=== PATIENT | male | born 1990 | race Caucasian/White ===

== ENCOUNTER → 2016-03-18 | Outpatient (CLI) | payer BC ==
[~2016-03-18] MED LIST: CALC ACETATE; CLEOCIN HCL300 MG PO; CLOTRIMAZOLE10 MG MM; D3-55000 IU PO; FOLIC ACID 11 MG/TA1 PO; LEVAQUIN 2250 MG/TAB PO; LIQUID MAGNESI400 MG PO; MYFORTIC360 MG PO; NEPHROCAPS QT; PEPCID 20MG TAB20 MG PO; PERCOCET 325 MG1 TA2 PO; PHOS LO PO; PREDNISONE 5MG5 MG PO; PRILOSEC 20MG20 MG PO; PROGRAF 1MG1 MG PO; RENVELA800 MG PO; TYLENOL 500MG500 MG PO; VITAMIN C; ZESTRIL 5MG5 MG PO; ZOVIRAX400 MG PO
[2016-03-18 10:18] LABS: CALCIUM 9.2 mg/dL (8.4-10.2); CREATININE, serum 2.16 mg/dL (0.66-1.25); PHOSPHOROUS 3.3 mg/dL (2.5-4.5)
[2016-03-18 10:29] LABS: POTASSIUM 2.8 mmol/L (3.4-5.0)
[2016-03-18 13:48] LABS: PH 5 (5-8); SQUAMOUS EPITHELIAL None Seen /hpf; URINE APPEARANCE Clear; URINE BACTERIA Rare /hpf; URINE BILIRUBIN Negative (NEGATIVE); URINE BLOOD 1+ (NEGATIVE); URINE COLOR Yellow; URINE GLUCOSE Negative (NEGATIVE); URINE KETONE Negative (NEGATIVE); URINE RBC 0-2 /hpf; URINE UROBILINOGEN Negative (NEGATIVE)
== END ==
LOC: COL.LAB 09:10
PROVIDERS: Internal Medicine Nephrology
DX: Z79.899 Other long term (current) drug therapy (principal); Z94.0 Kidney transplant status; N18.3 Chronic kidney disease, stage 3 (moderate); E83.42 Hypomagnesemia

== ENCOUNTER → 2016-03-18 | Outpatient (CLI) | payer BC | LOC: COL.RAD 13:30 | DX: N18.3 Chronic kidney disease, stage 3 (moderate) (principal); Z94.0 Kidney transplant status ==

== ENCOUNTER → 2016-03-31 | Outpatient (CLI) | payer BC ==
[2016-03-31 08:08] LABS: MEAN CELL VOLUME 93 fl (80.0-100.0); MEAN CORPUSCULAR HGB CONC 31 g/dl (33.0-37.0); MEAN PLATELET VOLUME 11.5 fl (7.4-10.4); PLATELET COUNT 256 K/mm3 (130-400); RED BLOOD COUNT 3.01 M/mm3 (4.20-5.60); REDCELL DISTRIBUTION WIDTH-CV 14.9 % (11.5-14.5); WHITE BLOOD COUNT 5.8 K/mm3 (4.8-10.8)
[2016-03-31 08:09] LABS: HEMATOCRIT 27.9 % (42.0-52.0); HEMOGLOBIN 8.7 g/dl (13.5-18.0); MEAN CORPUSCULAR HEMOGLOBIN 29 pg (27.0-31.0)
[2016-03-31 08:13] LABS: ADD PATHOLOGY DIFF REVIEW NO
[2016-03-31 08:24] LABS: ALBUMIN 3.4 gm/dL (3.5-5.0); CALCIUM 9.6 mg/dL (8.4-10.2); CREATININE, serum 1.87 mg/dL (0.66-1.25); MAGNESIUM 1.4 mg/dL (1.6-2.3)
[2016-03-31 09:49] LABS: POTASSIUM 5.9 mmol/L (3.4-5.0)
[2016-03-31 16:00] LABS: BAND 2 % (0-10); EOSINOPHIL 4 % (0-4); NEUTROPHILS 62 % (42.0-75.2); TOTAL CELLS COUNTED 100
[2016-03-31 16:02] LABS: HYPOCHROMIA 2+
[2016-03-31 16:03] LABS: ANISOCYTOSIS 1+; POIKILOCYTOSIS 1+; SCHISTOCYTES 1+
== END ==
LOC: COL.LAB 07:48
DX: R19.7 Diarrhea, unspecified (principal)

== ENCOUNTER → 2016-04-06 | Outpatient (CLI) | payer BC ==
[2016-04-06 09:22] LABS: PH 5 (5-8); SQUAMOUS EPITHELIAL None Seen /hpf; URINE APPEARANCE Clear; URINE BACTERIA None Seen /hpf; URINE BILIRUBIN Negative (NEGATIVE); URINE BLOOD Negative (NEGATIVE); URINE COLOR Yellow; URINE GLUCOSE Negative (NEGATIVE); URINE KETONE Negative (NEGATIVE); URINE RBC 0-2 /hpf; URINE UROBILINOGEN Negative (NEGATIVE)
[2016-04-06 09:25] LABS: ALBUMIN 3.7 gm/dL (3.5-5.0); CALCIUM 9.7 mg/dL (8.4-10.2); CREATININE, serum 1.83 mg/dL (0.66-1.25); PHOSPHOROUS 4.3 mg/dL (2.5-4.5)
== END ==
LOC: COL.LAB 08:18
PROVIDERS: Internal Medicine Nephrology
DX: N18.3 Chronic kidney disease, stage 3 (moderate) (principal); Z94.0 Kidney transplant status

== ENCOUNTER → 2016-05-04 | Outpatient (CLI) | payer BC ==
[2016-05-04 09:44] LABS: ALBUMIN 3.8 gm/dL (3.5-5.0); CALCIUM 9.6 mg/dL (8.4-10.2); CREATININE, serum 1.38 mg/dL (0.66-1.25); POTASSIUM 4.2 mmol/L (3.4-5.0)
[2016-05-04 10:13] LABS: PH 5 (5-8); SQUAMOUS EPITHELIAL None Seen /hpf; URINE APPEARANCE Clear; URINE BACTERIA None Seen /hpf; URINE BILIRUBIN Negative (NEGATIVE); URINE BLOOD Negative (NEGATIVE); URINE COLOR Yellow; URINE GLUCOSE Negative (NEGATIVE); URINE KETONE Negative (NEGATIVE); URINE RBC 0-2 /hpf; URINE UROBILINOGEN Negative (NEGATIVE); URINE WBC 0-2 /hpf
== END ==
LOC: COL.LAB 09:03
PROVIDERS: Internal Medicine Nephrology
DX: Z94.0 Kidney transplant status (principal); N18.3 Chronic kidney disease, stage 3 (moderate); E83.42 Hypomagnesemia; Z79.899 Other long term (current) drug therapy

== ENCOUNTER 2016-10-15 13:56 | Inpatient (IN) | payer OTHER ==
[~2016-10-15] VITALS: Ht 165.1 cm; Wt 65.9 kg
[~2016-10-15 13:56] MED LIST changes: -AMBIEN 5MG TABLE5 MG PO; -APRESOLINE 25MG25 MG PO; -COLACE 100100 MG/CAP PO; -EPOGEN10000 U/ML; -NORCO 325 MG-51 TAB PO; -NORVASC 10MG10 MG PO; -PHOSLO667 MG PO; -TRIAMCINOLONE A15 G3 TP
[2016-10-15 14:54] VITALS: BP 139/83; PULSE 88; TEMP 97.3
[2016-10-15 16:01] LABS: INR 1.3 (0.8-3.0); PROTHROMBIN TIME 14.6 SECONDS (9.7-12.8)
[2016-10-15 16:18] VITALS: BP 142/79; PULSE 99
[2016-10-15 16:18] LABS: PH 7 (5-8); SQUAMOUS EPITHELIAL None Seen /hpf; URINE APPEARANCE Hazy; URINE BACTERIA Rare /hpf; URINE BILIRUBIN Negative (NEGATIVE); URINE BLOOD 1+ (NEGATIVE); URINE COLOR Straw; URINE GLUCOSE 1+ (NEGATIVE); URINE KETONE Negative (NEGATIVE); URINE RBC 20-50 /hpf; URINE UROBILINOGEN Negative (NEGATIVE); URINE WBC >50 /hpf
[2016-10-15 16:30] LABS: URINE PROTEIN:CREAT RATIO 6.07 (0.00-0.14)
[2016-10-15 20:13] VITALS: BP 159/84; PULSE 94; TEMP 98.1
[2016-10-15 23:47] LABS: HEPATITIS B CORE AB,TOTAL Negative (()); HEPATITIS B SURFACE AB-QL Positive (())
[2016-10-16 00:08] VITALS: BP 136/79; PULSE 93; TEMP 99.8
[2016-10-16 04:38] VITALS: BP 150/91; PULSE 62; TEMP 97.5
[2016-10-16 05:36] LABS: EOS % 0.9 % (0-4.0); GRAN # 2.9 (1.4-6.5); GRAN % 83.8 % (42.2-75.2); LYMPH # 0.4 (1.2-3.4); LYMPH % 11.8 % (20.0-51.0); MEAN CELL VOLUME 87 fl (80.0-100.0); MEAN CORPUSCULAR HGB CONC 33 g/dl (33.0-37.0); MEAN PLATELET VOLUME 10.5 fl (7.4-10.4); MONO # 0.1 (0.1-0.6); MONO % 2.9 % (1.7-9.3); PLATELET COUNT 268 K/mm3 (130-400); RED BLOOD COUNT 2.67 M/mm3 (4.20-5.60); REDCELL DISTRIBUTION WIDTH-CV 13.2 % (11.5-14.5); WHITE BLOOD COUNT 3.5 K/mm3 (4.8-10.8)
[2016-10-16 05:37] LABS: HEMATOCRIT 23.1 % (42.0-52.0); HEMOGLOBIN 7.7 g/dl (13.5-18.0); MEAN CORPUSCULAR HEMOGLOBIN 29 pg (27.0-31.0)
[2016-10-16 05:46] LABS: CALCIUM 8.9 mg/dL (8.4-10.2)
[2016-10-16 05:57] LABS: CREATININE, serum 22.48 mg/dL (0.66-1.25); POTASSIUM 6.7 mmol/L (3.4-5.0)
[2016-10-16 10:04] VITALS: BP 151/96; PULSE 73; TEMP 97.9
[2016-10-16 10:51] VITALS: BP 160/100; PULSE 60
[2016-10-16 12:09] VITALS: BP 130/88; PULSE 90; TEMP 98.2
== END 2016-10-16 13:36 | disposition short-term general hospital (02) | DRG 683 ==
LOC: EUO 13:56 → MEDICAL 14:20
PROVIDERS: Internal Medicine
PROC: 02H633Z Insertion of Infusion Device into Right Atrium, Percutaneous Approach (ICD-10-PCS; principal; 2016-10-15)
PROC: B2141ZZ Fluoroscopy of Right Heart using Low Osmolar Contrast (ICD-10-PCS; 2016-10-15)
PROC: 5A1D60Z (ICD-10-PCS; 2016-10-15)
DX: N17.9 Acute kidney failure, unspecified (principal); Z94.0 Kidney transplant status; Q23.1 Congenital insufficiency of aortic valve; E87.5 Hyperkalemia; I12.9 Hypertensive chronic kidney disease with stage 1 through stage 4 chronic kidney disease, or unspecified chronic kidney disease; N18.3 Chronic kidney disease, stage 3 (moderate); D63.1 Anemia in chronic kidney disease
CPT/HCPCS: C1769; J0690; J1644; J1815; J2250; J2930; J3010; J7040; J7507; J7517

== ENCOUNTER → 2016-10-15 | Outpatient (CLI) | payer OTHER ==
[~2016-10-15] MED LIST changes: +AMBIEN 5MG TABLE5 MG PO; +APRESOLINE 25MG25 MG PO; +COLACE 100100 MG/CAP PO; +EPOGEN10000 U/ML; +NORCO 325 MG-51 TAB PO; +NORVASC 10MG10 MG PO; +PHOSLO667 MG PO; +TRIAMCINOLONE A15 G3 TP
[2016-10-15 12:14] LABS: BASO % 0.3 % (0.0-2.0); EOS # 1.3 (0.0-0.7); EOS % 12.5 % (0-4.0); GRAN # 6.8 (1.4-6.5); GRAN % 66.6 % (42.2-75.2); LYMPH # 1.2 (1.2-3.4); LYMPH % 11.3 % (20.0-51.0); MEAN CELL VOLUME 89 fl (80.0-100.0); MEAN CORPUSCULAR HGB CONC 33 g/dl (33.0-37.0); MEAN PLATELET VOLUME 10.7 fl (7.4-10.4); MONO # 0.8 (0.1-0.6); MONO % 7.9 % (1.7-9.3); PLATELET COUNT 284 K/mm3 (130-400); RED BLOOD COUNT 2.62 M/mm3 (4.20-5.60); REDCELL DISTRIBUTION WIDTH-CV 13.5 % (11.5-14.5)
[2016-10-15 12:16] LABS: HEMATOCRIT 23.3 % (42.0-52.0); HEMOGLOBIN 7.7 g/dl (13.5-18.0); MEAN CORPUSCULAR HEMOGLOBIN 29 pg (27.0-31.0)
[2016-10-15 14:45] LABS: ALBUMIN 3.5 gm/dL (3.5-5.0); CALCIUM 9.8 mg/dL (8.4-10.2); PHOSPHOROUS 8.6 mg/dL (2.5-4.5)
[2016-10-15 15:07] LABS: POTASSIUM 7.2 mmol/L (3.4-5.0)
[2016-10-15 15:33] LABS: CREATININE, serum 32.55 mg/dL (0.66-1.25)
== END ==
LOC: COL.LAB 11:16
DX: Z94.0 Kidney transplant status (principal)

== ENCOUNTER → 2016-11-06 | Outpatient (CLI) | payer OTHER | LOC: COL.VAS 10:50 | DX: Z01.89 Encounter for other specified special examinations (principal) ==

== ENCOUNTER → 2016-11-10 | Outpatient (CLI) | payer OTHER | LOC: COL.VAS 13:53 | DX: I87.8 Other specified disorders of veins (principal); N18.6 End stage renal disease | CPT/HCPCS: G0365 ==

== ENCOUNTER 2016-11-25 12:12 | Day surgery (SDC) | payer OTHER ==
[~2016-11-25] VITALS: Ht 165.1 cm; Wt 61.7 kg
[2016-11-25 12:50] VITALS: BP 126/80; PULSE 91; TEMP 98.5
[2016-11-25 12:51] LABS: MEAN CELL VOLUME 91 fl (80.0-100.0); MEAN CORPUSCULAR HGB CONC 32 g/dl (33.0-37.0); MEAN PLATELET VOLUME 9.3 fl (7.4-10.4); PLATELET COUNT 234 K/mm3 (130-400); RED BLOOD COUNT 3.02 M/mm3 (4.20-5.60); WHITE BLOOD COUNT 10.4 K/mm3 (4.8-10.8)
[2016-11-25] MEDS ORDERED: PHOSLO667 MG PO (12:59)
[2016-11-25] MEDS ORDERED: NORVASC 10MG10 MG PO (13:00)
[2016-11-25] MEDS ORDERED: EPOGEN10000 U/ML (13:01)
[2016-11-25] MEDS ORDERED: APRESOLINE 25MG25 MG PO (13:02)
[2016-11-25] MEDS ORDERED: TRIAMCINOLONE A15 G3 TP (13:04)
[2016-11-25 13:05] LABS: ADJUSTED CALCIUM 9.6 mg/dL (8.4-10.2); ALBUMIN 4.1 gm/dL (3.5-5.0); BILIRUBIN,TOTAL 0.5 mg/dL (0.0-1.0); CALCIUM 9.7 mg/dL (8.4-10.2); TOTAL PROTEIN 8.8 gm/dL (6.4-8.2)
[2016-11-25 13:10] LABS: CREATININE, serum 6.98 mg/dL (0.66-1.25)
[2016-11-25 13:11] LABS: HEMATOCRIT 27.6 % (42.0-52.0); HEMOGLOBIN 8.8 g/dl (13.5-18.0); MEAN CORPUSCULAR HEMOGLOBIN 29 pg (27.0-31.0)
[2016-11-25 15:40] VITALS: BP 100/66; PULSE 85; TEMP 98.8
[2016-11-25 15:55] VITALS: BP 109/76; PULSE 76
[2016-11-25] MEDS ORDERED: NORCO 325 MG-51 TAB PO (16:00)
[2016-11-25] MEDS ORDERED: COLACE 100100 MG/CAP PO (16:00)
[2016-11-25 16:10] VITALS: BP 109/60; PULSE 65
[2016-11-25 16:25] VITALS: BP 104/68; PULSE 70
[2016-11-25 17:05] VITALS: BP 116/80; PULSE 79
== END 2016-11-25 18:13 | disposition home or self-care (01) ==
LOC: SDCO 12:12
PROVIDERS: Nurse Anesthetist, Certified Registered
DX: I12.9 Hypertensive chronic kidney disease with stage 1 through stage 4 chronic kidney disease, or unspecified chronic kidney disease (principal); N18.4 Chronic kidney disease, stage 4 (severe); Z94.0 Kidney transplant status; Q23.1 Congenital insufficiency of aortic valve; D68.59 Other primary thrombophilia; Q21.0 Ventricular septal defect; D64.9 Anemia, unspecified; Z99.2 Dependence on renal dialysis
CPT/HCPCS: J0690; J1644; J2250; J2405; J2704; J3010; J7030

== ENCOUNTER 2016-12-23 11:58 | Day surgery (SDC) | payer OTHER ==
[~2016-12-23] VITALS: Ht 165.1 cm; Wt 60.5 kg
[~2016-12-23 11:58] MED LIST changes: +APRESOLINE 25MG25 MG PO; +COLACE 100100 MG/CAP PO; +EPOGEN10000 U/ML; +NORCO 325 MG-51 TAB PO; +NORVASC 10MG10 MG PO; +PHOSLO667 MG PO; +TRIAMCINOLONE A15 G3 TP
[2016-12-23 13:05] VITALS: BP 112/70; PULSE 83; TEMP 98.3
[2016-12-23] MEDS ORDERED: FOLIC ACID 11 MG/TA1 PO (13:13)
[2016-12-23 16:43] VITALS: BP 112/65; PULSE 66; TEMP 98.3
[2016-12-23 16:58] VITALS: BP 102/62; PULSE 71
[2016-12-23] MEDS ORDERED: COLACE 100100 MG/CAP PO (17:08)
[2016-12-23] MEDS ORDERED: NORCO 325 MG-51 TAB PO (17:08)
[2016-12-23 17:13] VITALS: BP 104/67; PULSE 72
[2016-12-23 17:28] VITALS: BP 107/63; PULSE 77
[2016-12-23 17:57] VITALS: BP 106/60; PULSE 70
== END 2016-12-23 18:11 | disposition home or self-care (01) ==
LOC: SDCO 11:58
DX: I12.0 Hypertensive chronic kidney disease with stage 5 chronic kidney disease or end stage renal disease (principal); N18.6 End stage renal disease; D64.9 Anemia, unspecified; K21.9 Gastro-esophageal reflux disease without esophagitis; Q21.0 Ventricular septal defect; I10 Essential (primary) hypertension
CPT/HCPCS: J0690; J2704; J3010; J7030

== ENCOUNTER → 2017-03-10 | Outpatient (CLI) | payer OTHER ==
[~2017-03-10] VITALS: Ht 165.1 cm; Wt 52.2 kg
[2017-03-10 14:29] VITALS: BP 117/75; PULSE 106
[2017-03-10 15:55] VITALS: BP 141/77; PULSE 103
== END ==
LOC: COL.RAD 13:30
DX: N18.6 End stage renal disease (principal); T82.7XXA Infection and inflammatory reaction due to other cardiac and vascular devices, implants and grafts, initial encounter

== ENCOUNTER 2017-04-21 10:23 | Emergency (ER) | payer OTHER ==
[~2017-04-21] VITALS: Ht 165.1 cm; Wt 59.5 kg
[2017-04-21] MEDS ORDERED: AMBIEN 5MG TABLE5 MG PO (10:31)
[2017-04-21 13:12] VITALS: BP 144/7; PULSE 128; TEMP 98.5
== END 2017-04-21 13:14 | disposition home or self-care (01) ==
LOC: COL.ER 10:23
DX: T82.898A Other specified complication of vascular prosthetic devices, implants and grafts, initial encounter (principal); M79.602 Pain in left arm; R20.0 Anesthesia of skin; N18.9 Chronic kidney disease, unspecified; Z99.2 Dependence on renal dialysis; Z79.52 Long term (current) use of systemic steroids

== ENCOUNTER → 2017-05-07 | Outpatient (CLI) | payer OTHER ==
[~2017-05-07] MED LIST changes: +AMBIEN 5MG TABLE5 MG PO
== END ==
LOC: COL.VAS 13:55
DX: M79.602 Pain in left arm (principal); N18.4 Chronic kidney disease, stage 4 (severe)

== ENCOUNTER → 2017-05-24 | Outpatient (CLI) | payer OTHER | LOC: COL.LAB 14:38 | DX: R11.0 Nausea (principal); R10.13 Epigastric pain ==

== ENCOUNTER → 2017-05-24 | Outpatient (CLI) | payer OTHER ==
[2017-05-24 15:01] LABS: COLLECTION METHOD CLEAN CATCH
[2017-05-24 15:08] LABS: MEAN CELL VOLUME 97 fl (80.0-100.0); MEAN CORPUSCULAR HGB CONC 30 g/dl (33.0-37.0); MEAN PLATELET VOLUME 9.2 fl (7.4-10.4); PLATELET COUNT 472 K/mm3 (130-400); RED BLOOD COUNT 2.97 M/mm3 (4.20-5.60); REDCELL DISTRIBUTION WIDTH-CV 14.3 % (11.5-14.5)
[2017-05-24 15:10] LABS: HEMATOCRIT 28.8 % (42.0-52.0); HEMOGLOBIN 8.7 g/dl (13.5-18.0); MEAN CORPUSCULAR HEMOGLOBIN 29 pg (27.0-31.0)
[2017-05-24 15:21] LABS: PH 7 (5-8); SQUAMOUS EPITHELIAL None Seen /hpf; URINE APPEARANCE Hazy; URINE BACTERIA None Seen /hpf; URINE BILIRUBIN Negative (NEGATIVE); URINE BLOOD 3+ (NEGATIVE); URINE COLOR Red; URINE GLUCOSE Negative (NEGATIVE); URINE KETONE Negative (NEGATIVE); URINE LEUKOCYTE ESTERASE 1+ (NEGATIVE); URINE NITRATE Negative (NEGATIVE); URINE PROTEIN(semi-quant) 3+ (NEGATIVE); URINE RBC >50 /hpf; URINE UROBILINOGEN Negative (NEGATIVE)
[2017-05-24 15:28] LABS: ALBUMIN 2.6 gm/dL (3.5-5.0); BILIRUBIN,TOTAL 0.2 mg/dL (0.0-1.0); CALCIUM 8.3 mg/dL (8.4-10.2); POTASSIUM 3.9 mmol/L (3.4-5.0); TOTAL PROTEIN 6.5 gm/dL (6.4-8.2)
[2017-05-24 15:47] LABS: BAND 5 % (0-10); BASOPHIL 1 % (0-2); EOSINOPHIL 5 % (0-4); LYMPHOCYTE 19 % (20.0-51.0); METAMYELOCYTE 2 % (0-0); NEUTROPHILS 66 % (42.0-75.2); PLATELET ESTIMATE INCREASED (NORMAL)
[2017-05-24 15:49] LABS: HYPOCHROMIA 3+
[2017-05-24 16:20] LABS: CREATININE, serum 5.93 mg/dL (0.66-1.25)
== END ==
LOC: COL.LAB 14:40
PROVIDERS: Internal Medicine Nephrology
DX: K59.00 Constipation, unspecified (principal); R11.0 Nausea; R31.0 Gross hematuria

== ENCOUNTER → 2018-01-24 | Outpatient (CLI) | payer MEDICARE, OTHER | LOC: COL.RAD 10:33 | DX: Z11.1 Encounter for screening for respiratory tuberculosis (principal) ==

== ENCOUNTER → 2018-03-23 | Outpatient (CLI) | payer MEDICARE, OTHER ==
[2018-03-23 12:01] LABS: BASO % 0.4 % (0.0-2.0); EOS # 0.3 (0.0-0.7); EOS % 6.6 % (0-4.0); GRAN # 2.8 (1.4-6.5); GRAN % 56.2 % (42.2-75.2); LYMPH # 1.2 (1.2-3.4); LYMPH % 23.3 % (20.0-51.0); MEAN CELL VOLUME 103 fl (80.0-100.0); MEAN CORPUSCULAR HEMOGLOBIN 33 pg (27.0-31.0); MEAN CORPUSCULAR HGB CONC 32 g/dl (33.0-37.0); MEAN PLATELET VOLUME 10.8 fl (7.4-10.4); MONO # 0.7 (0.1-0.6); MONO % 13.1 % (1.7-9.3); PLATELET COUNT 165 K/mm3 (130-400); RED BLOOD COUNT 3.29 M/mm3 (4.20-5.60); REDCELL DISTRIBUTION WIDTH-CV 13.3 % (11.5-14.5)
[2018-03-23 12:09] LABS: HEMATOCRIT 33.9 % (42.0-52.0)
[2018-03-23 12:19] LABS: ALBUMIN 4.4 gm/dL (3.5-5.0); BILIRUBIN,TOTAL 0.7 mg/dL (0.0-1.0); CALCIUM 9.7 mg/dL (8.4-10.2); INR 1.1 (0.8-3.0); POTASSIUM 3.9 mmol/L (3.4-5.0); PROTHROMBIN TIME 12.6 SECONDS (9.7-12.8)
[2018-03-23 12:48] LABS: HIV 1/2 Antibodies Non-Reactive; HIV-1p24 Antigen Non-Reactive
[2018-03-23 12:55] LABS: CREATININE, serum 6.5 mg/dL (0.66-1.25)
[2018-03-24 03:07] LABS: HEPATITIS B CORE AB,TOTAL Negative (()); HEPATITIS B SURFACE ANTIGEN Negative (Negative); HEPATITIS C VIRUS ANTIBODY Negative (Negative)
[2018-03-24 12:01] LABS: EBV EARLY ANTIGEN IGG Positive (()); EBV NUCLEAR ANTIGEN IGG Positive (())
[2018-03-24 12:26] LABS: EBV IGM AB Negative (())
== END ==
LOC: COL.LAB 10:31
DX: Z01.818 Encounter for other preprocedural examination (principal); N18.6 End stage renal disease; E11.29 Type 2 diabetes mellitus with other diabetic kidney complication

== ENCOUNTER → 2019-01-10 | Outpatient (CLI) | payer MEDICARE ==
[~2019-01-10] VITALS: Ht 165.1 cm; Wt 64.0 kg
[2019-01-10] VITALS (10 sets, daily range): BP systolic 148–168; BP diastolic 101–112; PULSE 95–106; TEMP 98.5
[~2019-01-10] MED LIST changes: +DUPIXENT200 MG/1.1 SQ
--- NOTE | 2019-01-10 15:51 | NUR ---
SEE MERGE DOCUMENTATION FOR MEDICATION ADMINISTRATION TIMES AND INTRA/POST PROCEDURE SEDATION ASSESSMENTS. UNABLE TO OBTAIN IV ACCESS; WILL ADMIN THROUGH FISTULA SHEATH IF MEDICATIONS NEEDED PER MD.
--- NOTE | 2019-01-10 18:15 | NUR ---
Pt has done well during his post procedure recovery. Pt did not receive any sedation during procedure other than the po ativan he had prior to procedure. pt has remained awake and alert, has been able to eat and drink. bandaid to fistula has remained clean and dry, no bleeding noted. thrill palpated, bruit auscultated. Pt plans to f/u with Dr. Clark regarding results of this study. dc instructions regarding fistula care after this procedure were re- viewed with patient. He was given written instructions regarding av fistulogram including post procedure information. PT was advised to refrain from drinking alcohol, driving until tomorrow. pt was escorted to exit via wheelchair, in the company of his significant other.
== END ==
LOC: COL.CAR 12:15
DX: I77.0 Arteriovenous fistula, acquired (principal); N18.6 End stage renal disease; L98.8 Other specified disorders of the skin and subcutaneous tissue; Q21.0 Ventricular septal defect; Q23.1 Congenital insufficiency of aortic valve; D64.9 Anemia, unspecified; Z94.0 Kidney transplant status; Z88.1 Allergy status to other antibiotic agents; Z88.8 Allergy status to other drugs, medicaments and biological substances; Z79.899 Other long term (current) drug therapy
CPT/HCPCS: J1644; Q9967